=== PATIENT | female | born 1940 | race Caucasian/White ===

== ENCOUNTER → 2016-07-31 | Outpatient (CLI) | payer MEDICARE, OTHER | END | disposition home or self-care (01) | LOC: PCVCIMAG 10:10 | PROVIDERS: ATTEND Internal Medicine Cardiovascular Disease | DX: I35.0 Nonrheumatic aortic (valve) stenosis (principal); I10 Essential (primary) hypertension; R60.9 Edema, unspecified; I07.1 Rheumatic tricuspid insufficiency | CPT/HCPCS: 93005; 93306; G0463 ==

== ENCOUNTER → 2017-07-30 | Outpatient (CLI) | payer MEDICARE, OTHER | END | disposition home or self-care (01) | LOC: PCVCIMAG 09:33 | DX: I08.3 Combined rheumatic disorders of mitral, aortic and tricuspid valves (principal); I10 Essential (primary) hypertension; R42 Dizziness and giddiness; Z79.82 Long term (current) use of aspirin | CPT/HCPCS: 93005; 93306; G0463 ==

== ENCOUNTER → 2018-09-17 | Outpatient (CLI) | payer MEDICARE, OTHER ==
[~2018-09-17] MED LIST: REGADENOSON 0.4 MG/5 ML DISP.SYRIN. IV ONE
--- NOTE | 2018-09-17 09:54 | PCVCIMAG ---
APPROVED REPORT Study performed: 09/17/2018 08:27:20 EXAM: Comprehensive 2D, Doppler, and color-flow Echocardiogram Patient Location: Echo lab Status: routine BSA: 1.68 HR: 75 bpmBP: 140/80 mmHg Rhythm: NSR Other Information Study Quality: Adequate Risk Factors: Cardiac Risk Factors: HTN Indications Aortic Valve Disease 2D Dimensions IVSd: 12.25 (7-11mm)LVOT Diam: 21.17 (18-24mm) LVDd: 38.77 mm PWd: 10.27 (7-11mm)Ascending Ao: 41.36 (22-36mm) LVDs: 25.83 (25-40mm) Left Atrium: 28.82 (27-40mm) Aortic Root: 35.40 mm LV Single Plane 4CH: 57.20 % LV Single Plane 2CH: 62.85 % Biplane EF: 60.3 % Volumes Left Atrial Volume (Systole) Single Plane 4CH: 30.46 mLSingle Plane 2CH: 39.27 mL LA ESV Index: 23.00 mL/m2 Aortic Valve AoV Peak Forrest.: 3.53 m/s AO Peak Gr.: 0.00 mmHgLVOT Max P.14 mmHg AO Mean Gr.: 29.23 mmHgLVOT Mean P.37 mmHg AO V2 Mean: 2.63 m/sLVOT Max V: 1.13 m/s AO V2 VTI: 82.89 cmLVOT Mean V: 0.88 m/s JIMMIE (VTI): 1.20 [id number] V1 VTI: 28.38 cm JIMMIE Vmax: 1.13 cm2 AI Vmax: 3.36 m/sSV (LVOT): 99.83 mL AI Childress: 2.54 m/s2 AI PHT: 382.78 ms Mitral Valve E/A Ratio: 0.7 MV Decel. Time: 391.53 ms MV E Max Forrest.: 0.74 m/s MV A Forrest.: 1.08 m/s IVRT: 155.71 ms TDI E/Lateral E': 9.25E/Medial E': 18.50 Medial E' Forrest.: 0.04 m/s Lateral E' Forrest.: 0.08 m/s Pulmonary Valve PV Peak Gr.: 4.46 mmHg Pulmonary Vein P Vein S: 0.81 m/sP Vein A: 0.41 m/s P Vein D: 0.54 m/sP Vein A Dur.: 83.0 msec P Vein S/D Ratio: 1.50 Tricuspid Valve TR Peak Forrest.: 2.96 m/s TR Peak Gr.: 34.96 mmHg Left Ventricle The left ventricle is normal size. There is normal LV segmental wall motion. There is normal left ventricular wall thickness. Left ventricular systolic function is normal. The left ventricular ejection fraction is within the normal range. LVEF is 60%. Grade I - abnormal relaxation pattern. Right Ventricle The right ventricle is normal size. The right ventricular systolic function is normal. Atria The left atrium size is normal. The right atrium size is normal. Aortic Valve Aortic valve leaflets are moderately thickened. Mild aortic regurgitation. Moderate aortic stenosis. Mitral Valve There is mitral annular calcification. There is no mitral valve regurgitation noted. No evidence of mitral valve stenosis. Tricuspid Valve The tricuspid valve is normal in structure. Mild to moderate tricuspid regurgitation. Pulmonary artery pressure is 42mmHg. Pulmonic Valve The pulmonary valve is normal in structure. There is no pulmonic valvular regurgitation. Great Vessels The aortic root is normal in size. The ascending aorta is mildly dilated measuring 4.1cm. IVC is normal in size and collapses >50% with inspiration. Pericardium There is no pericardial effusion. <Conclusion> The left ventricle is normal size. There is normal left ventricular wall thickness. Left ventricular systolic function is normal. Grade I - abnormal relaxation pattern. The right ventricle is normal size. The left atrium size is normal. The right atrium size is normal. Aortic valve leaflets are moderately thickened. Mild aortic regurgitation. Moderate aortic stenosis. There is no mitral valve regurgitation noted. Mild to moderate tricuspid regurgitation. Pulmonary artery pressure is 42mmHg. The ascending aorta is mildly dilated measuring 4.1cm.
--- NOTE | 2018-09-17 14:06 | PCVCIMAG ---
APPROVED REPORT Imaging Protocol: Rest Tc-99m/Stress Tc-99m 1 day Study performed: 09/17/2018 09:55:38 Indication: Aortic Stenosis Patient Location: Out-Patient Stress Nurse: Rena Edwards RN [place] Tech:CRIS FournierMT Ht: 5 ft 4 in Wt: 144 lbs BSA: 1.70 m2 HR: 83 bpm BP: 157/72 mmHg BMI: 24.71 Rhythm: Sinus Rhythm, nonspecific ST-T abnormalities Medical History Medical History: Hyperlipidemia, HTN Medications: ASA, Norvasc, Metoprolol Allergies: No known drug allergies Cardiac Risk Factors: Age Pretest Chest Pain Characteristics: No chest pain Exercise History: Physically active Meds Held (24 hrs): Metoprolol Resting Data Rest SPECT myocardial perfusion imaging was performed in supine position 45 minutes following the intravenous injection of 10.4 mCi of Tc-99m Sestamibi. Time of rest injection: 09 Date: 09/17/2018 Administration Route: IV Administration Site: Right Hand Pharmacologic Stress Pharmacologic stress test was performed by injecting Regadenoson 0.4 mg IV push over 10-15 seconds immediately followed by the intravenous injection of 32.6 mCi of Tc-99m Sestamibi. Time of stress injection: 1030 Date: 09/17/2018 Administration Route: IV Administration Site: Right Hand Gated Stress SPECT was performed 45 minutes after stress injection. The images were gated to evaluate regional wall motion and calculate left ventricular ejection fraction. Stress Test Details Stress Test: Pharmacologic stress testing performed using 0.4 mg of regadenoson per 5 mL given IV over 10 seconds. Reason for pharmacologic stress test: Vestibular dysvunction. HRMax Heart Rate (APMHR): 143 bpm Resting HR: 83 bpmTarget HR (85% APMHR): 121 bpm Max HR Achieved: 116 bpm % of APMHR: 81 Recovery HR: 99 bpm BP Resting BP: 157/72 mmHg Max BP: 141/73 mmHg Recovery BP: 122/60 mmHg ECG Resting ECG: Sinus Rhythm, nonspecific ST-T abnormalities Stress ECG: Sinus Tachycardia, nonspecific ST-T abnormalities ST Change: Nondiagnostic resting ST abnormalities Recovery ECG: Sinus Rhythm, nonspecific ST-T abnormalities Clinical Reason for Termination: Completed protocol Stress Symptoms: Chest tightness Exercise duration: 0 min 55 sec Symptoms resolved with caffeine. Study Quality Study: Good Artifact: Mild Breast artifact Study Data Post stress, the left ventricular ejection was 71%.. SSS: 0 SRS: 0 SDS: 0 TID = 1.12. Perfusion There is a small area of mildly reduced uptake in the distal segment of the anterior wall which is seen on the stress images as well as the resting images. This area thickens and moves normally and is most consistent with attenuation artifact. Wall Motion Normal left ventricular wall motion. Nuclear Conclusion ECG Findings: non-diagnostic Clinical Findings: negative for ischemia Nuclear Findings: negative for ischemia Exercise Capacity: not assessed Left Ventricular Function: normal Risk Study: low This study is of low probability for inducible ischemia or prior infarct. Normal global and segmental LV systolic function. Artifact: Mild Breast artifact
== END | disposition home or self-care (01) ==
LOC: PCVCIMAG 09:41
PROVIDERS: ATTEND Internal Medicine Cardiovascular Disease
DX: I08.3 Combined rheumatic disorders of mitral, aortic and tricuspid valves (principal); I10 Essential (primary) hypertension; R60.9 Edema, unspecified; E78.00 Pure hypercholesterolemia, unspecified
CPT/HCPCS: 78452; 93005; 93017; 93306; A9500; G0463; J2785